=== PATIENT | female | born 1990 | race Caucasian/White ===

== ENCOUNTER 2024-08-20 07:13 | Emergency (ER) | payer BC ==
[2024-08-20] MEDS: Cyclobenzaprine 10 MG Tab PO ONE (07:54)
[2024-08-20] MEDS: Ketorolac 60 MG/2 ML SDV IM ONE (07:55)
[2024-08-20] MEDS: HYDROmorphone 1 MG/ML Syringe IM ONE (07:55)
[2024-08-20] MEDS: Ondansetron 4 MG Tab.DIS PO ONE (07:57)
== END 2024-08-20 09:17 | disposition home or self-care (01) ==
LOC: JD.ED 07:13
DX: M54.42 Lumbago with sciatica, left side (principal)
CPT/HCPCS: 72100; 96372; 99283; A9270; J1171; J1885